=== PATIENT | male | born 2000 | race Caucasian/White ===

== ENCOUNTER 2022-06-08 18:52 | Emergency (ER) | payer OTHER, SELFPAY ==
[2022-06-08] MEDS ORDERED: Ketorolac Tromethamine 60 MG/2 ML VIAL ONE (19:23)
[2022-06-08] MEDS ORDERED: Cyclobenzaprine 10 MG TAB ONE (19:23)
== END 2022-06-08 19:30 | disposition home or self-care (01) ==
LOC: BURERS 18:52
DX: S39.012A Strain of muscle, fascia and tendon of lower back, initial encounter (principal); X58.XXXA Exposure to other specified factors, initial encounter
CPT/HCPCS: 96372; 99283; J1885

== ENCOUNTER 2024-07-02 23:12 | Emergency (ER) | payer OTHER ==
[2024-07-02] MEDS ORDERED: Bacitracin 1 PK ONE (23:40)
== END 2024-07-02 23:47 | disposition home or self-care (01) ==
LOC: BURERS 23:12
DX: S91.201A Unspecified open wound of right great toe with damage to nail, initial encounter (principal)
CPT/HCPCS: 99283